=== PATIENT | male | born 1950 | race Caucasian/White ===

== ENCOUNTER → 2016-12-28 | Outpatient (CLI) | payer OTHER | END | disposition home or self-care (01) | LOC: CFH 09:58 | PROVIDERS: ATTEND Internal Medicine Cardiovascular Disease | DX: I08.0 Rheumatic disorders of both mitral and aortic valves (principal); I37.1 Nonrheumatic pulmonary valve insufficiency; I10 Essential (primary) hypertension; I51.7 Cardiomegaly | CPT/HCPCS: 93306 ==

== ENCOUNTER → 2020-04-09 | Outpatient (CLI) | payer MEDICARE ==
[~2020-04-09] MED LIST: AMLO10TA8 PO; CARV25TA12 PO; LOSA100T14 PO; SPIR25TA5 PO; TADA10TA PO
== END | disposition home or self-care (01) ==
LOC: CFH 10:34
PROVIDERS: ATTEND Internal Medicine Cardiovascular Disease
DX: I08.0 Rheumatic disorders of both mitral and aortic valves (principal)
CPT/HCPCS: 93306